=== PATIENT | male | born 1980 | race Two or more races ===

== ENCOUNTER 2020-09-25 12:36 | Emergency (ER) | payer OTHER ==
[2020-09-25 12:44] VITALS: BP 161/112
[2020-09-25] MEDS ORDERED: KETOROLAC TROMETH 30 MG/ML 1ML VIAL IV ONE (14:00)
== END 2020-09-25 14:51 | disposition home or self-care (01) ==
LOC: EDBD 12:36 → ER 12:36
DX: S82.391A Other fracture of lower end of right tibia, initial encounter for closed fracture (principal); S93.491A Sprain of other ligament of right ankle, initial encounter; W11.XXXA Fall on and from ladder, initial encounter; Y93.89 Activity, other specified; Y92.89 Other specified places as the place of occurrence of the external cause; Y99.8 Other external cause status
CPT/HCPCS: 29515; 73610; 96374; 99283; J1885